=== PATIENT | female | born 1980 | race Caucasian/White ===

== ENCOUNTER 2017-03-21 12:08 | Emergency (ER) | payer BC ==
[~2017-03-21] VITALS: Ht 162.6 cm; Wt 77.1 kg
[2017-03-21 12:11] VITALS: BP 137/94
[2017-03-21] MEDS ORDERED: FLUORESCEIN SODIUM OPHTH 1 EA STRIP ONE (12:45)
[2017-03-21] MEDS ORDERED: TETRACAINE HCL/PF 0.5% UD 2 ML BOTTLE ONE (12:45)
[2017-03-21] MEDS ORDERED: TETRACAINE HCL/PF 0.5% UD 2 ML BOTTLE LEFTEYE ONE (13:00)
[2017-03-21] MEDS ORDERED: FLUORESCEIN SODIUM OPHTH 1 EA STRIP OP ONE (13:00)
== END 2017-03-21 13:14 | disposition home or self-care (01) ==
LOC: ER 12:10
DX: H16.002 Unspecified corneal ulcer, left eye (principal)
CPT/HCPCS: 99283; A4606; Z7610